=== PATIENT | female | born 2000 | race Two or more races ===

== ENCOUNTER 2025-02-13 14:17 | Emergency (ER) | payer OTHER ==
[2025-02-13 14:24] VITALS: BP 117/79; PULSE 76; RESP 18; TEMP 98.9; BMI 31.3
[2025-02-13] MEDS ORDERED: ACETAMINOPHEN 325 MG TABLET (FP) ONE (15:08)
[2025-02-13 15:14] LABS: ABSOLUTE IMMATURE GRANULOCYTES 0.03 x10^3/uL (0.0-0.031); BASOPHILS # 0.04 x10^3/uL (0.01-0.08); EOSINOPHIL % 0.5 % (0.7-5.8); EOSINOPHILS # 0.04 x10^3/uL (0.04-0.36); HEMOGLOBIN 12.2 g/dL (11.2-15.7); MCHC 33.9 g/dl (32.2-35.5); MEAN CELL VOLUME 85.5 fl (79.4-94.8); MONOCYTE # 0.69 x10^3/uL (0.24-0.86); MONOCYTE % 8.9 % (4.7-12.5); PLATELET COUNT 355 x10^3/uL (182-369); RDW 12.2 % (12.1-16.5)
[2025-02-13 15:17] LABS: URINE APPEARANCE CLEAR; URINE BILIRUBIN NEGATIVE (NEGATIVE); URINE COLOR DK YELLOW; URINE GLUCOSE (UA) NEGATIVE (NEGATIVE); URINE KETONE NEGATIVE (NEGATIVE); URINE LEUK ESTERASE NEGATIVE (NEGATIVE); URINE NITRITE NEGATIVE (NEGATIVE); URINE PROTEIN NEGATIVE (NEGATIVE); URINE UROBILINOGEN 0.2 mg/dL (0.2-1.0)
[2025-02-13] MEDS: ACETAMINOPHEN 325 MG TABLET (FP) PO ONE (15:19)
[2025-02-13] MEDS: SODIUM CHLORIDE 0.9% 500 ML INFUS.BAG IV ONE (15:19)
[2025-02-13 15:20] LABS: HCG,QUALITATIVE URINE Negative
[2025-02-13 15:36] LABS: ALBUMIN 3.4 g/dl (3.4-5.0); CALCIUM 8.4 mg/dL (8.5-10.1)
[2025-02-13 15:40] LABS: CREATININE 0.6 mg/dL (0.55-1.3)
[2025-02-13 15:42] LABS: BILIRUBIN,TOTAL 0.4 mg/dL (0.2-1); TOT PROT 6.4 g/dl (6.4-8.2)
[2025-02-13] MEDS ORDERED: POTASSIUM CHLORIDE ORAL LIQUID 20 MEQ/15 ML ONE (16:00)
[2025-02-13] MEDS ORDERED: LIDOCAINE 5% TOPICAL PATCH ONE (16:01)
[2025-02-13] MEDS: POTASSIUM CHLORIDE ORAL LIQUID 20 MEQ/15 ML PO ONE (16:08)
[2025-02-13] MEDS: LIDOCAINE 5% TOPICAL PATCH TP ONE (16:08)
[2025-02-13 16:33] LABS: HIV INTERPRETATION NEGATIVE (NEGATIVE)
[2025-02-13 16:45] LABS: HCV DIAGNOSTIC IN-HOUSE W/RFLX NON-REACTIVE (NONREACTIVE)
[2025-02-13] MEDS ORDERED: LIDOCAINE PATCH REMOVAL MC SCH (22:00)
== END 2025-02-13 16:25 | disposition home or self-care (01) ==
LOC: JER 14:17
DX: R10.32 Left lower quadrant pain (principal)
CPT/HCPCS: 36415; 80053; 81003; 84703; 85025; 86803; 87086; 87389; 99283-25